=== PATIENT | male | born 1970 | race Caucasian/White ===

== ENCOUNTER 2016-08-25 06:04 | Day surgery (SDC) | payer BC ==
[2016-08-19 14:12] LABS: BASOPHILS 0.2 %; BASOPHILS ABSOLUTE 0.01 10/3/uL (0.0-0.16); EOSINOPHILS ABSOLUTE 0.04 10/3/uL (0.0-0.53); HEMOGLOBIN 14.5 g/dL (13.6-17.8); IMMATURE GRANULOCYTES 0.2 %; IMMATURE GRANULOCYTES ABSOLUTE 0.01 10/3/uL (0.0-0.11); LYMPHOCYTES 36.7 %; LYMPHOCYTES ABSOLUTE 1.48 10/3/uL (0.67-4.30); MEAN CORPUS HGB CONC 33.1 g/dL (32.0-36.0); MEAN CORPUSCULAR HEMOGLOB 27.1 pg (26.0-34.0); MEAN PLATELET VOLUME 10.7 fL (9.2-13.0); MONOCYTES 10.2 %; MONOCYTES ABSOLUTE 0.41 10/3/uL (0.21-1.20); NEUTROPHILS 51.7 %; NEUTROPHILS ABSOLUTE 2.08 10/3/uL (2.02-8.40); PLATELET COUNT 169 10/3/uL (150-400); RBC DISTRIBUTION WIDTH 17.3 % (12.0-16.0); RED CELL COUNT 5.36 10/6/uL (4.7-6.1)
[2016-08-19 14:13] LABS: HEMATOCRIT 43.8 % (40.0-51.0); MANUAL DIFF NO %; MEAN CORPUSCULAR VOLUME 81.7 fL (80-100)
[2016-08-19 14:18] LABS: PARTIAL THROMBO TIME 24.6 SEC (22.5-37.2)
[2016-08-19 14:25] LABS: BUN (BLOOD UREA NITROGEN) 16 MG/DL (6-23); CALCIUM, SERUM 9.6 MG/DL (8.5-10.4); CHLORIDE, SERUM 103 MMOL/L (96-112); CO2 (CARBON DIOXIDE) 32 MMOL/L (24-34); CREATININE 1.09 MG/DL (0.70-1.30); GFR AFRICAN AMERICAN 95 ML/MIN (>=60); GFR NON AFRICAN AMERICAN 82 ML/MIN (>=60); GLUCOSE, SERUM 95 MG/DL (60-99); POTASSIUM, SERUM 4.2 MMOL/L (3.5-5.3); SODIUM, SERUM 139 MMOL/L (135-148)
--- NOTE | ~2016-08-25 | OP ---
Record Of Operation [facility] [address] [place]. [address] NAME: IGGY CARLSON : 70 STATUS : [facility] PAT#: [id number] AGE: 45 ADM/REG DATE : 08/25/16 MR#: [id number] REPORT SERV DATE: 08/25/16 DICTATED BY: TANK CUADRA DATE: 08/25/16 REPORT STATUS : Draft TRANSCRIBED BY: MODL DATE: 08/25/16 DATE OF PROCEDURE: 08/25/2016 SERVICE: Otolaryngology. SURGEON: Tank Cuadra M.D. PREOPERATIVE DIAGNOSES: 1. Obstructive sleep apnea. 2. Nasal septal deviation. POSTOPERATIVE DIAGNOSES: 1. Obstructive sleep apnea. 2. Nasal septal deviation. PROCEDURE PERFORMED: 1. Uvulopalatopharyngoplasty with tonsillectomy. 2. Nasal septoplasty. 3. Bilateral inferior submucosal resection with turbinate outfracture. INDICATIONS FOR PROCEDURE: The patient is a 45-year-old male with diagnosed moderate obstructive sleep apnea based on apnea-hypopnea index. He is unable to tolerate CPAP machine secondary to claustrophobia. He presents for surgical management after clinical evaluation. ANESTHESIA: General endotracheal. BLOOD LOSS: 30 mL. RETAINED ITEMS: Bilateral Bajwa splints. SPECIMENS: 1. Bilateral tonsils. 2. Uvula. OPERATIVE FINDINGS: 1. 2+ cryptic tonsils. 2. Right severe septal deviation with the lateral nasal wall contact. DESCRIPTION OF PROCEDURE: The patient was identified in the preoperative holding where informed consent was ensured. He was brought to the operating room, placed on the operating table in supine position. General endotracheal anesthesia was induced without difficulty. A time-out was performed to identify the patient and discuss operative plan. The patient was then prepped and draped in a standard fashion for this procedure. The head of bed was turned 90 degrees to facilitate access the head and neck. Record Of [facility] hospital [address]. [address] NAME: IGGY CARLSON : 70 STATUS : [facility] PAT#: [id number] AGE: 45 ADM/REG DATE : 08/25/16 MR#: [id number] REPORT SERV DATE: 08/25/16 DICTATED BY: TANK CUADRA DATE: 08/25/16 REPORT STATUS : Draft TRANSCRIBED BY: MODL DATE: 08/25/16 A Brendon-Petros mouth gag was inserted into oral cavity and suspended from towels placed on the patient's chest. Tonsils were noted to be 2+ and symmetric. First, the right tonsil was resected from the tonsillar fossa. Hemostasis was ensured with suction Bovie cautery. A similar procedure was performed on the contralateral side using Bovie cautery to resect the left tonsil from mid tonsillar fossa. Once again, hemostasis was ensured with suction Bovie cautery. A small incision was made with Bovie cautery on the cut function at the base of the uvula. The uvula as well as a small portion of soft palate were grasped with Adson's and resected carefully with preservation of mucosa. The tonsillar fossae were reapproximated with 3-0 Vicryl sutures bilaterally. The mucosal surfaces of the soft palate were then reapproximated using this same suture. The patient's oral cavity was copiously irrigated. All equipment was withdrawn from the oral cavity and oropharynx. The head of bed was then turned back toward anesthesia. Specimens were sent for routine pathology. Attention was turned to the patient's nasal cavity and septum. Topical epinephrine was placed into bilateral nasal cavities. The septum itself as well as the inferior turbinates were injected with 2 mL of 1% lidocaine with 1:100,000 epinephrine. This was allowed to take full effect. A eliane-transfixion incision was made on the patient's left nasal septum. A submucoperichondrial flap was established 1st on the left side and elevated posteriorly and superiorly. The nasal endoscope was brought into the field, and the video tower was used for the remainder of the case for direct visualization of septoplasty and inferior turbinate. A submucoperichondrial flap was then elevated on the contralateral side after perforation of the cartilage, preserving at least a centimeter of caudal septal strut. The cartilage was taken out piecemeal from anteriorly to posteriorly. Additionally, the nasal spine was partially removed. There was a significant posterior septal deviation, which was a combination of cartilage and bone, this was removed sequentially. There was a large perforation on this side; however, there was no perforation on the contralateral left side. Once the septum was adequately straightened, a eliane-transfixion incision was closed with 4-0 chromic suture in an interrupted fashion. Due to friable mucosa, Lc needle was not placed for the septal whip stitch. Attention was then turned to the inferior turbinates. Small stab incisions were made in the bilateral inferior heads of the inferior turbinate. A Charles was used to establish submucosal plane posteriorly bilaterally. Microdebrider blade was used for submucosal resection. The turbinates were outfractured using a Shiloh. There was good visualization of the posterior choana at this point. The patient was then copiously irrigated. Bajwa splints were placed bilaterally and secured to the anterior septum with a 2-0 nylon suture. The oropharynx was suctioned of all blood. The patient was turned over to anesthesia for awakening and extubation. He was transported to PACU in stable condition. DISPOSITION: The patient will be discharged if he meets PACU criteria and will follow up in approximately five to seven days. /SEYMOUR Tank Cuadra MD Record Of Operation [address] [address] NAME: IGGY CARLSON : 70 STATUS : [facility] PAT#: [id number] AGE: 45 ADM/REG DATE : 08/25/16 MR#: [id number] REPORT SERV DATE: 08/25/16 DICTATED BY: TANK CUADRA DATE: 08/25/16 REPORT STATUS : Draft TRANSCRIBED BY: MODJustino DATE: 08/25/16 / [id number] CC: MD YVAN Briones FRANKLIN H
[~2016-08-25 06:04] MED LIST: NEXIUM20 M1 PO; Z100 PO
== END 2016-08-25 16:44 | disposition home or self-care (01) ==
LOC: SDC 06:04
PROVIDERS: Otolaryngology
PROC: 0CTPXZZ Resection of Tonsils, External Approach (ICD-10-PCS; principal; 2016-08-25 07:15)
DX: J35.1 Hypertrophy of tonsils (principal); G47.33 Obstructive sleep apnea (adult) (pediatric); J34.2 Deviated nasal septum; Z79.899 Other long term (current) drug therapy
CPT/HCPCS: 80048; 85025; 85730; 88300; 88302; 88304; A9270-GY; J0690; J1170; J2250; J2270; J2405; J2710; J3010